=== PATIENT | female | born 1945 | race Caucasian/White ===

== ENCOUNTER 2021-03-20 12:50 | Emergency (ER) | payer MEDICARE ==
[~2021-03-20] VITALS: Ht 162.6 cm; Wt 81.1 kg
--- NOTE | 2021-03-20 13:09 | NUR ---
PATIENT WALKED BACK FROM TRIAGE WITH CHIEF C/O DIZZINESS AND LEFT EAR PAIN X1 WEEK. DIZZINESS HAS GOTTEN WORSE, PATIENT REPORTS "EVERY TIME I SIT UP I GET DIZZY." PATIENT SEEN AT THIS MORNING AND REFERRED TO ED FOR FURTHER WORKUP. Daniel [id number], CONNECTED TO MONITOR, VSS, CALL LIGHT WITHIN REACH.
[2021-03-20 13:41] LABS: ALANINE AMINOTRANSFERASE 26 U/L (12-78); ALBUMIN 3.6 g/dL (3.4-5.0); ANION GAP 6 mmol/L (5-15); CALCIUM 8.8 mg/dL (8.5-10.1); CHLORIDE 110 mmol/L (98-107); CREATININE 1.01 mg/dL (0.55-1.02)
[2021-03-20 13:43] LABS: BASOPHILS % (AUTO) 1 % (0-1); EOSINOPHILS % (AUTO) 2 % (1-7); LYMPHOCYTES % (AUTO) 39 % (22-44); MEAN CORPUSCULAR HEMOGLOBIN 31.8 pg (27.0-34.8); MEAN CORPUSCULAR HGB CONC 33.7 g/dL (32.4-35.8); MEAN PLATELET VOLUME 7.7 fL (7.4-10.4); MONOCYTES % (AUTO) 8 % (2-9); NEUTROPHILS % (AUTO) 51 % (42-75); PLATELET COUNT 260 x10^3/uL (130-400); RED BLOOD COUNT 4.68 x10^6/uL (3.82-5.3); RED CELL DISTRIBUTION WIDTH 12.9 % (9.6-15.2)
[2021-03-20 13:46] LABS: ALKALINE PHOSPHATASE 103 U/L (45-117); BILIRUBIN,TOTAL 0.4 mg/dL (0.2-1.0); TOTAL PROTEIN 7.7 g/dL (6.4-8.2); TROPONIN I < 0.015 ng/mL (0.000-0.045)
--- NOTE | 2021-03-20 13:52 | NUR ---
PT BACK IN ROOM FROM CT- CANNOT GET BED TO LOCK- TOLD JULIAN LOTT
== END 2021-03-20 14:42 | disposition home or self-care (01) ==
LOC: MERGE 14:35 → ED 14:35
DX: R42 Dizziness and giddiness (principal); R51.9 Headache, unspecified; R94.31 Abnormal electrocardiogram [ECG] [EKG]
CPT/HCPCS: 36415; 70450; 71045; 80053; 84484; 85025; 93005; 99285